=== PATIENT | female | born 2000 | race Two or more races ===

== ENCOUNTER 2022-12-06 03:42 | Observation (INO) | payer MEDICAID ==
[~2022-12-06] VITALS: Ht 162.6 cm; Wt 68.0 kg
[2022-12-06] MEDS ORDERED: PNV1TABL76 MT (04:54)
== END 2022-12-06 05:05 | disposition home or self-care (01) ==
LOC: 8 EST LDRP 03:42
PROVIDERS: ADMIT Specialist; ATTEND Specialist
DX: O26.892 Other specified pregnancy related conditions, second trimester (principal); N89.8 Other specified noninflammatory disorders of vagina; O99.891 Other specified diseases and conditions complicating pregnancy; M54.9 Dorsalgia, unspecified; Z3A.25 25 weeks gestation of pregnancy
CPT/HCPCS: 59025; G0378; 99281